=== PATIENT | male | born 1995 | race Caucasian/White ===

== ENCOUNTER 2024-08-05 01:36 | Observation (INO) ==
[2024-08-05 02:16] LABS: Basophils # (auto) 0.03 K/uL (0.00-0.20); Basophils % (auto) 0.8 %; Eosinophils # (auto) 0.04 K/uL (0.00-0.50); Hematocrit (blood only) 45.7 % (42.0-52.0); Immature Granulocytes # (auto) 0.01 K/uL (0.01-0.20); Immature Granulocytes % (auto) 0.3 %; Lymphocytes # (auto) 1.62 K/uL (1.20-3.40); Lymphocytes % (auto) 41.3 %; Mean Corpuscular Hemoglobin 32.3 pg (25.0-34.0); Mean Corpuscular Volume 92.3 fL (80.0-100.0); Mean Platelet Volume 10.5 fL (9.4-12.4); Monocytes # (auto) 0.36 K/uL (0.11-0.59); Monocytes % (auto) 9.2 %; Neutrophils # (auto) 1.86 K/uL (1.40-6.50); Neutrophils % (auto) 47.4 %; Platelet Count 236 K/uL (130-400); RDW Coefficient of Variation 11.9 % (11.5-14.5); RDW Standard Deviation 39.9 fL (36.4-46.3); Red Blood Count 4.95 M/uL (4.70-6.10); White Blood Count 3.92 K/ul (4.8-10.8)
--- NOTE | 2024-08-05 02:27 | Emergency Department Note ---
History of Present Illness General Chief complaint: Detox Request Stated complaint: ALCOHOL DETOX Time Seen by Provider: 08/05/24 01:44 History of Present Illness This 28-year-old male who is an alcoholic presents ER requesting detox. Patient states he been drinking heavily since he was 16 years of age. He does get the shakes from not drinking. No history of seizures. Patient denies chest pain, dyspnea, abdominal pain, vomiting, diarrhea. He last drank at 1900. He drinks 6-8 bottles of malt liquor that is 15% per day per patient and girlfriend. Home Medications Medication Instructions Recorded Confirmed Type escitalopram oxalate 20 mg tablet 20 mg PO DAILY 08/05/24 08/05/24 History hydroxyzine HCl 25 mg tablet 25 - 50 mg PO Q6 PRN Anxiety 08/05/24 08/05/24 History Allergies Allergy/AdvReac Type Severity Reaction Status Date / Time cefazolin AdvReac Intermediate Rash Verified 08/26/12 17:16 Past Med/Surg History Problem List (Updated 08/05/24 @ 03:35 by Helen Bowden DO) Acute alcoholism (Acute) Medical History (Updated 08/05/24 @ 03:35 by Helen Bowden DO) Depression with anxiety Surgical History (Updated 08/05/24 @ 03:35 by Helen Bowden DO) No significant past surgical history Family History (Updated 08/05/24 @ 03:35 by Helen Bowden DO) Other Coronary heart disease Social History (Updated 08/05/24 @ 03:36 by Helen Bowden DO) Smoking Status: Never smoker Tobacco Type: Smokeless Tobacco (Dip or Chew) Hx Alcohol Use: Yes Hx Substance Use: No Preferred Language: Bahraini Feels Safe at Home: Yes Review of Systems A total of 10 systems reviewed and were otherwise negative Physical Exam Vital Signs Vital Signs - 24 hr 08/05/24 01:41 08/05/24 02:07 08/05/24 02:08 Temperature 37 C Temperature Source Temporal Artery Scan Pulse Rate 80 72 Respiratory Rate 17 Blood Pressure 124/91 Blood Pressure Mean 102 Pulse Oximetry 99 99 Oxygen Delivery Method Room Air Room Air Sepsis Recent Fever Within 48 Hours No Sepsis New/Unexplained Change in Mental Status No Sepsis Action Taken by Nursing No Action Required 08/05/24 02:08 Temperature Temperature Source Pulse Rate Respiratory Rate Blood Pressure Blood Pressure Mean Pulse Oximetry 99 Oxygen Delivery Method Room Air Sepsis Recent Fever Within 48 Hours Sepsis New/Unexplained Change in Mental Status Sepsis Action Taken by Nursing VITALS: Vitals are noted on the nurse's note and reviewed by myself. Vital signs stable. GENERAL: Pleasant gentleman with EtOH odor, in no acute distress, nondiaphoretic, well-developed well-nourished. SKIN: The skin was without rashes, erythema, edema, or bruising. There is no tenting of the skin. Capillary reflex less than 2 seconds. HEAD: Normocephalic atraumatic. EARS: External auditory canals clear EYES: Pupils equal round and reactive to light and accommodation. Conjunctivae with mild injection, sclerae without icterus. Extraocular movements intact. NOSE: Patent, no discharge. MOUTH: Mucous membranes moist. Pharynx without erythema or exudate. Uvula midline. Airway patent. Tongue does not deviate. NECK: Supple without nuchal rigidity. No lymphadenopathy. No thyromegaly. Cervical spine is nontender. No JVD. HEART: Regular rate and rhythm LUNGS: Clear to auscultation bilaterally without wheezes, rales or rhonchi. No retractions or accessory muscle use. ABDOMEN: Positive bowel sounds x 4. Normal tympanic percussion. Soft, nontender, without masses or organomegaly. Mckeon sign negative. No guarding or rebound tenderness. No CVA tenderness MUSCULOSKELETAL: No muscle atrophy, erythema, or edema noted. NEURO: Patient was alert and oriented to person place and time. Normal sensation to light and sharp touch. No focal neurological deficits. Course Administered Medications Discontinued Medications Thiamine HCl 500 mg/ Sodium (Chloride) 55 mls @ 210 mls/hr IV NOW ONE Stop: 08/05/24 02:04 Last Infusion: 08/05/24 03:22 Dose: Infused Documented By: Admin: 08/05/24 02:57 Dose: 210 mls/hr Documented By: DARIN Folic Acid 1 mg/ Syringe 10 mls @ 5 mls/min IV NOW STA Stop: 08/05/24 01:50 Last Admin: 08/05/24 02:57 Dose: 5 mls/min Documented By: DARIN Sodium Chloride (Nss) 1,000 mls @ 999 mls/hr IV .Q1H1M ONE Stop: 08/05/24 02:49 Last Admin: 08/05/24 02:58 Dose: 999 mls/hr Documented By: DARIN Lorazepam (Lorazepam 2 Mg/1 Ml Vial) 1 mg IV NOW STA Stop: 08/05/24 02:11 Last Admin: 08/05/24 02:57 Dose: 1 mg Documented By: DARIN Multivitamins (Multivitamin Tab) 1 tab PO NOW STA Stop: 08/05/24 01:50 Last Admin: 08/05/24 02:56 Dose: 1 tab Documented By: DARIN Medical Decision Making Medical Records Attestation: I reviewed the patient's medical records. Home Medications Current Medication List: was personally reviewed by me Laboratory Data Attestation: I reviewed the patient's lab results. 08/05/24 02:04 08/05/24 02:04 Lab Results 08/05/24 Range/Units 02:04 WBC 3.92 L (4.8-10.8) K/ul RBC 4.95 (4.70-6.10) M/uL Hgb 16.0 (14.0-18.0) g/dl Hct 45.7 (42.0-52.0) % MCV 92.3 (80.0-100.0) fL MCH 32.3 (25.0-34.0) pg MCHC 35.0 (32.0-36.0) g/dL RDW Std Deviation 39.9 (36.4-46.3) fL RDW Coeff of Claribel 11.9 (11.5-14.5) % Plt Count 236 (130-400) K/uL MPV 10.5 (9.4-12.4) fL Immature Gran % (Auto) 0.3 % Neut % (Auto) 47.4 % Lymph % (Auto) 41.3 % [place] % (Auto) 9.2 % Eos % (Auto) 1.0 % Baso % (Auto) 0.8 % Neut # (Auto) 1.86 (1.40-6.50) K/uL Lymph # (Auto) 1.62 (1.20-3.40) K/uL [place] # (Auto) 0.36 (0.11-0.59) K/uL Eos # (Auto) 0.04 (0.00-0.50) K/uL Baso # (Auto) 0.03 (0.00-0.20) K/uL Immature Gran # (Auto) 0.01 (0.01-0.20) K/uL Sodium 144 (136-145) mmol/L Potassium 4.0 (3.5-5.1) mmol/L Chloride 106 (98-107) mmol/L Carbon Dioxide 32 (21-32) mmol/L Anion Gap 6 (3-11) BUN 8 (6-23) mg/dl Creatinine 0.82 (0.6-1.4) mg/dl Est Cr Clr Drug Dosing 137.2 ml/min eGFR 121.95 BUN/Creatinine Ratio 9.8 L (10-20) Glucose 103 H (70-99(Fasting)) mg/dl Calcium 8.6 (8.6-10.3) mg/dl Magnesium 2.2 (1.7-2.4) mg/dl Total Bilirubin 0.5 (0.2-1.0) mg/dl AST 32 (13-39) U/L ALT 26 (7-52) U/L Alkaline Phosphatase 90 (34-104) U/L Total Creatine Kinase 156 (30-223) U/L Total Protein 7.8 (6.0-8.3) gm/dl Albumin 4.7 (3.4-5.0) gm/dl Globulin 3.1 (2.5-4.0) gm/dl Albumin/Globulin Ratio 1.5 (0.9-2) Ethyl Alcohol mg/dL 329.1 H (<10.0) mg/dl MDM Narrative Prior records/ancillary studies reviewed. Triage Nursing notes reviewed. Additional history obtained from family. The patient's history was concerning for altered mental status and probable overdose. Differential diagnosis: Etiologies such as toxicologic, infection, hypoglycemia, electrolyte abnormalities, cardiac sources, intracerebral event, neurologic, as well as others were entertained. Physical examination: The patient had BACK: No tenderness, no muscle spasm or CVA tenderness. Sensorium. No trauma noted. ER treatment provided: IV NSS 1 L bolus Multivitamin, thiamine, folate was ordered An order was placed for continuous cardiac monitoring. The monitor shows a rate of 60-100 with a sinus rhythm per my interpretation. Ativan was ordered On reassessment the patient was stable and improving. Diagnostic interpretation by me: ECG: ordered for overdose The electrocardiogram was negative for pathologic change. There was no QRS widening or interval prolongation. EKG: Normal sinus, normal intervals, no acute ST-T wave changes, rate of 68. Impression normal sinus rhythm independently interpreted by myself The labs Independently Interpreted by myself revealed stable H&H Alcohol 329 Consultation: A consultation was placed with the hospitalist. The case was discussed and diagnostics were reviewed. The patient was evaluated in the ER for further treatment. This appears to be consistent with alcoholism requesting detox. Labs were reviewed. Patient was given multivitamins for his alcoholism. He was given a dose of Ativan. He was not tachycardic. Medicine was consulted case discussed. He will be admitted to the medical service. By the evaluation outlined above emergent etiologies such as infection, hypoglycemia, electrolyte abnormalities, cardiac sources, intracerebral event, neurologic,as well as others were deemed relatively unlikely. The pt informed about the findings as listed above. All questions were answered and pleased with the treatment. The chart was completed utilizing [employer] Speech voice recognition software. Grammatical errors, random word insertions, pronoun errors, and incomplete sentences are an occassional consequence of this system due to software limitations, ambient noise, and hardware issues. Any formal questions or concerns about the content, text, or information contained within the body of this dictation should be directly addressed to the physician zoning assistant for clarification. Impression & Plan Acute alcoholism Discharge Plan Visit Data Chief Complaint: Detox Request Stated Complaint: ALCOHOL DETOX ED Provider: Terrence Reyna ED Midlevel Provider: Liz Curry Discharge Problem: Acute alcoholism Patient Disposition: Admitted As Inpatient Condition: Good Forms Stand Alone Forms: My [facility], Suicide Prevention Resources Prescriptions Prescriptions: No Action hydroxyzine HCl 25 mg tablet 25 - 50 mg PO Q6 PRN (Reason: Anxiety) escitalopram oxalate 20 mg tablet 20 mg PO DAILY Referrals Referrals: PCP,NO [Physician] -
[2024-08-05 02:34] LABS: Albumin Globulin Ratio 1.5 (0.9-2); Albumin Level 4.7 gm/dl (3.4-5.0); BUN Creatinine Ratio 9.8 (10-20); Bilirubin,Total 0.5 mg/dl (0.2-1.0); Calcium 8.6 mg/dl (8.6-10.3); Creatinine Clr Calc Pharmacy 137.2 ml/min; Globulin 3.1 gm/dl (2.5-4.0); Magnesium 2.2 mg/dl (1.7-2.4); Total Protein 7.8 gm/dl (6.0-8.3)
[2024-08-05] MEDS: MULTIVITAMIN TAB PO STA (02:56)
[2024-08-05] MEDS: FOLIC ACID 1 MG in SYRINGE 9.8 ML IV STA (02:57)
[2024-08-05] MEDS: LORazepam 2 MG/1 ML VIAL IV STA (02:57)
[2024-08-05] MEDS: THIAMINE HCL 500 MG in SODIUM CHLORIDE 0.9% 50 ML IV ONE (02:57)
[2024-08-05] MEDS: SODIUM CHLORIDE 0.9% 1,000 ML IV ONE (02:58)
--- NOTE | 2024-08-05 03:23 | History & Physical Report ---
Date of Service August 05, 2024 Assessment & Plan (1) Acute alcoholism: (2) Depression with anxiety: Plan 28yo male with history of depression with anxiety, habitual drinking presenting with request for EtOH detox. Patient drinks intermittently. Has been drinking fairly heavily for the last 3- 4 days. Approximately 8 drinks/day. Last drink 08/04/24 at 19:00. No history of complicated withdrawal #Acute alcoholism - EtOH [id number]=370.1 presently. No evidence of withdrawal at present. Patient has been given 1mg IV Ativan int he ER. -Admit to PCU -Librium taper per protocol -IV Ativan per AWSS protocol -Thiamine 100mg po daily, Folic Acid 1mg po daily and MVI daily -Case Management consultation placed - patient expressed desire to go to EtOH rehab after discharge #Depression/Anxiety -Continue Escitalopram 20mg po daily -Hold Hydroxyzine for now History of Present Illness Chief Complaint: Requesting EtOH detox Primary Care Provider: Cedric Stout PA-C Esteban Tijerina is a pleasant 28yo male presenting requesting EtOH detox. Patient with history of anxiety and depression, well managed with Escitalopram and Hydroxyzine. He reports that over the last several years he goes through periods of heavy drinking. He is able to stop drinking for 5-7 days at a time. States that when he starts drinking, however, he is unable to stop. He has been drinking over the last 3-4 days - approximately 8 drinks/day. He drinks [place] from [employer] as well as some hard liquor and beer. Last drink was 08/04/24 at 19:00. When he [place] stopped drinking in the past he has become slightly shaky and sweaty. In the ER patent is afebrile, HD stable ER Course: Thiamine MVI Ativan 1mg IV NSS x 1L Allergies Allergy/AdvReac Type Severity Reaction Status Date / Time cefazolin AdvReac Intermediate Rash Verified 08/26/12 17:16 Home Medications Medication Instructions Recorded Confirmed Type escitalopram oxalate 20 mg tablet 20 mg PO DAILY 08/05/24 08/05/24 History hydroxyzine HCl 25 mg tablet 25 - 50 mg PO Q6 PRN Anxiety 08/05/24 08/05/24 History Past Med/Surg History Problem List (Updated 08/05/24 @ 03:35 by Helen Bowden DO) Acute alcoholism (Acute) Medical History (Updated 08/05/24 @ 03:35 by Helen Bowden DO) Depression with anxiety Surgical History (Updated 08/05/24 @ 03:35 by Helen Bowden DO) No significant past surgical history Family History (Updated 08/05/24 @ 03:35 by Helen Bowden DO) Other Coronary heart disease Social History (Updated 08/05/24 @ 03:36 by Helen Bowden DO) Smoking Status: Never smoker Tobacco Type: Smokeless Tobacco (Dip or Chew) Hx Alcohol Use: Yes Hx Substance Use: No Preferred Language: Tanzanian Feels Safe at Home: Yes Review of Systems Review of Systems: All systems reviewed & are unremarkable except as noted in HPI & below Physical Exam Physical Exam: General: patient resting comfortably, NAD, non-toxic in appearance, AA&O x 4 Skin: warm, dry, intact, no rashes or lesions HEENT: NC/AT, PERRL, EOMI, anicteric sclera, conjunctiva without injection, external ear normal to inspection and nontender, nares patent, moist mucus membranes, dentition intact, no oropharyngeal lesions, neck supple, trachea midline, no LAD, no thyromegaly, no JVD Heart: +S1/S2, regular, no m/r/g Lungs: equal air entry bilaterally, no rales/rhonchi/wheezes Abd: +BS, soft, NT/ND, no masses/organomegaly/ascites Ext: warm, 2+ pulses in UE/LE bilaterally, no clubbing/cyanosis or edema Neuro: nonfocal, patient AA&O x 4, speech intact, no facial droop, moving all extremities on command with equal strength 5/5 Results & Data Results & Data Vital Signs (Past 12 Hours) Vital Signs Temp Pulse Resp BP Pulse Ox O2 Del Method 08/05/24 02:08 99 Room Air 08/05/24 02:08 99 Room Air 08/05/24 02:07 72 08/05/24 01:41 37 C 80 17 124/91 99 Room Air Laboratory Results Laboratory Results WBC 3.92 K/ul (4.8-10.8) L 08/05/24 02:04 RBC 4.95 M/uL (4.70-6.10) 08/05/24 02:04 Hgb 16.0 g/dl (14.0-18.0) 08/05/24 02:04 Hct 45.7 % (42.0-52.0) 08/05/24 02:04 MCV 92.3 fL (80.0-100.0) 08/05/24 02:04 MCH 32.3 pg (25.0-34.0) 08/05/24 02:04 MCHC 35.0 g/dL (32.0-36.0) 08/05/24 02:04 RDW Std Deviation 39.9 fL (36.4-46.3) 08/05/24 02:04 RDW Coeff of Claribel 11.9 % (11.5-14.5) 08/05/24 02:04 Plt Count 236 K/uL (130-400) 08/05/24 02:04 MPV 10.5 fL (9.4-12.4) 08/05/24 02:04 Immature Gran % (Auto) 0.3 % 08/05/24 02:04 Neut % (Auto) 47.4 % 08/05/24 02:04 Lymph % (Auto) 41.3 % 08/05/24 02:04 [place] % (Auto) 9.2 % 08/05/24 02:04 Eos % (Auto) 1.0 % 08/05/24 02:04 Baso % (Auto) 0.8 % 08/05/24 02:04 Neut # (Auto) 1.86 K/uL (1.40-6.50) 08/05/24 02:04 Lymph # (Auto) 1.62 K/uL (1.20-3.40) 08/05/24 02:04 [place] # (Auto) 0.36 K/uL (0.11-0.59) 08/05/24 02:04 Eos # (Auto) 0.04 K/uL (0.00-0.50) 08/05/24 02:04 Baso # (Auto) 0.03 K/uL (0.00-0.20) 08/05/24 02:04 Immature Gran # (Auto) 0.01 K/uL (0.01-0.20) 08/05/24 02:04 Sodium 144 mmol/L (136-145) 08/05/24 02:04 Potassium 4.0 mmol/L (3.5-5.1) 08/05/24 02:04 Chloride 106 mmol/L (98-107) 08/05/24 02:04 Carbon Dioxide 32 mmol/L (21-32) 08/05/24 02:04 Anion Gap 6 (3-11) 08/05/24 02:04 BUN 8 mg/dl (6-23) 08/05/24 02:04 Creatinine 0.82 mg/dl (0.6-1.4) 08/05/24 02:04 Est Cr Clr Drug Dosing 137.2 ml/min 08/05/24 02:04 eGFR 121.95 08/05/24 02:04 BUN/Creatinine Ratio 9.8 (10-20) L 08/05/24 02:04 Glucose 103 mg/dl (70-99(Fasting)) H 08/05/24 02:04 Calcium 8.6 mg/dl (8.6-10.3) 08/05/24 02:04 Magnesium 2.2 mg/dl (1.7-2.4) 08/05/24 02:04 Total Bilirubin 0.5 mg/dl (0.2-1.0) 08/05/24 02:04 AST 32 U/L (13-39) 08/05/24 02:04 ALT 26 U/L (7-52) 08/05/24 02:04 Alkaline Phosphatase 90 U/L (34-104) 08/05/24 02:04 Total Creatine Kinase 156 U/L (30-223) 08/05/24 02:04 Total Protein 7.8 gm/dl (6.0-8.3) 08/05/24 02:04 Albumin 4.7 gm/dl (3.4-5.0) 08/05/24 02:04 Globulin 3.1 gm/dl (2.5-4.0) 08/05/24 02:04 Albumin/Globulin Ratio 1.5 (0.9-2) 08/05/24 02:04 Ethyl Alcohol mg/dL 329.1 mg/dl (<10.0) H 08/05/24 02:04 PG Care Time/CCT Total # of Minutes Spent Total Time Spent with Patient: Total time spent is greater than 50% in coordination of care (as documented) at patient's floor/unit and/or counseling patient: Coding Level of Care Code 54360 INT INP/OBS CARE MIN Diagnoses Acute alcoholism F10.20 Depression with anxiety F41.8
[2024-08-05] MEDS ORDERED: chlordiazePOXIDE ALCOHOL WITHDRAWL 50MG PO STA (05:42)
[2024-08-05] MEDS ORDERED: LORazepam 2 MG/1 ML VIAL IV PRN ×3 (05:42)
[2024-08-05] MEDS ORDERED: Ativan IV Alcohol Withdrawal--Active Protocol IV PRN (05:42)
[2024-08-05] MEDS ORDERED: ONDANSETRON INJ 2 MG/ML 2 ML VIAL IV PRN (05:42)
[2024-08-05] MEDS: chlordiazePOXIDE HCl 25 MG CAP PO SCH (06:52)
--- NOTE | 2024-08-05 08:16 | Hospitalist Progress Note ---
Date of Service August 05, 2024 Assessment & Plan (1) Acute alcoholism: (2) Depression with anxiety: Plan 28yo male with history of depression with anxiety, habitual drinking presenting with request for EtOH detox. Patient drinks intermittently. Has been drinking fairly heavily for the last 3- 4 days. Approximately 8 drinks/day. Last drink 08/04/24 at 19:00. No history of complicated withdrawal #Acute alcoholism - EtOH [id number] presently. No evidence of withdrawal at present. Patient was given 1mg IV Ativan int he ER. -Admitted to PCU -Librium taper per protocol -IV Ativan per AWSS protocol -Thiamine 100mg po daily, Folic Acid 1mg po daily and MVI daily -Case Management consultation placed - patient expressed desire to go to EtOH rehab after discharge #Depression/Anxiety -Continue Escitalopram 20mg po daily -Hold Hydroxyzine for now Admission and Anticipated Discharge Date Admission Date: August 05, 2024 Supervising Physician Co-Signing Physician Notes I personally examined the patient and verified all [place] points of history and exam, discussed case, and agree with decision making with Dr Fields No significant tremulousness sweats or tachycardia. Feeling okay. Discussed self management of behaviors that can trigger drinkingdiscussed exercise and quite meditative measures. Asked him to look through resources to determine what he feels would be his best plan outside the hospital. Vitals noted, in general he is awake and alert pleasant no distress. HEENT normocephalic atraumatic mucous membranes moist. Breathing unlabored no accessory muscle use good effort. Skin without rashes pallor or icterus. No tremulousness, no diaphoresis. Alcohol abuse/risk for withdrawalso far none, although he came in quite intoxicated and certainly withdrawal could still precipitate. Follow at least into tomorrowif he continues to look this good tomorrow, likely will be safe for discharge. At the same time of withdrawal starts to ramp up at all then obviously will need to actively management and follow him longer. Discussed self-management measures, and asked him to look through resources to start to decide what plans would fit best for him. Viktoria Hogan is seen resting comfortably at bedside this morning. Patient feels well this morning and denies excessive sweating, chills/rigors, tremors, and headaches. Patient denies chest pain, palpitations, SOB, abdominal pain, nausea, and vomiting. Patient inquires about his blood alcohol level and is surprised that it is as high as it was and regrets driving to the hospital. Patient interested in acute EtOH rehabilitation but wants to keep his options open and questions his ability to work while admitted in rehab. The dangers of chronic alcohol use and potential associated conditions are discussed with patient and he expressed understanding of these complications. Patient is afebrile and hemodynamically stable. Physical Exam Physical Exam: General: patient resting comfortably, NAD, non-toxic in appearance, answers questions appropriately. Skin: warm, dry, intact HEENT: NC/AT, anicteric sclera, conjunctiva without injection, moist mucus membranes. Heart: +S1/S2, regular, no m/r/g Lungs: equal air entry bilaterally, no rales/rhonchi/wheezes Abd: +BS, soft, NT/ND, uterine fundus firm at umbilicus Ext: warm, no clubbing/cyanosis or edema Neuro: nonfocal, speech intact, no facial droop, moving all extremities. Results & Data Results & Data Vital Signs (Past 12 Hours) Vital Signs Temp Pulse Pulse Resp BP BP Pulse Ox 08/05/24 07:55 73 08/05/24 07:50 36.3 C L 73 18 113/74 97 08/05/24 06:00 36.3 C L 74 18 133/95 98 08/05/24 05:42 36.6 C 74 16 133/95 98 08/05/24 05:08 79 18 113/80 97 08/05/24 03:59 72 18 122/83 98 08/05/24 02:08 99 08/05/24 02:08 99 08/05/24 02:07 72 08/05/24 01:41 37 C 80 17 124/91 99 O2 Del Method 08/05/24 07:55 08/05/24 07:50 Room Air 08/05/24 06:00 Room Air 08/05/24 05:42 Room Air 08/05/24 05:08 Room Air 08/05/24 03:59 Room Air 08/05/24 02:08 Room Air 08/05/24 02:08 Room Air 08/05/24 02:07 08/05/24 01:41 Room Air Resident Activity Tracking Resident Involvement: Resident Care Provided Care Provided: Adult Hospital Medicine
[2024-08-05] MEDS: FOLIC ACID 1 MG TAB PO SCH (08:52)
[2024-08-05] MEDS: MULTIVITAMIN TAB PO SCH (08:52)
[2024-08-05] MEDS: ESCITALOPRAM OXALATE 20 MG TAB PO SCH (08:52)
[2024-08-05] MEDS: THIAMINE HCL 100 MG TAB PO SCH (08:52)
[2024-08-05 12:54] LABS: Amphetamines+Metham, Urine Neg (Neg); Barbiturates, Urine Neg (Neg); Benzodiazepine, Urine Neg (Neg); Cocaine, Urine Neg (Neg); Fentanyl, Urine Neg (Neg); MDMA (Ecstacy), Urine Neg (Neg); Marijuana, Urine Neg (Neg); Methadone, Urine Neg (Neg); Opiate, Urine Neg (Neg); Phencyclidine, Urine Neg (Neg)
--- NOTE | 2024-08-05 13:22 | Electrocardiogram Report ---
Test Reason : Blood Pressure : */* mmHG Vent. Rate : 68 BPM Atrial Rate : 68 BPM P-R Int : 124 ms QRS Dur : 96 ms QT Int : 440 ms P-R-T Axes : -11 35 48 degrees QTcB Int : 467 ms Normal sinus rhythm Normal ECG No previous ECGs available Confirmed by Harman Reeves ([id number]) on 08/05/2024 1:21:39 PM Referred By: REFERRED SELF Confirmed By: Harman Reeves
--- NOTE | 2024-08-05 14:49 | Billing Data ---
Date of Service August 05, 2024 Coding Level of Care Code 32962 SUB INP/OBS CARE
[2024-08-06 07:09] LABS: Hematocrit (blood only) 42.7 % (42.0-52.0); Hemoglobin 15.1 g/dl (14.0-18.0); Mean Corpuscular Hemoglobin 32.8 pg (25.0-34.0); Mean Corpuscular Hgb Conc 35.4 g/dL (32.0-36.0); Mean Corpuscular Volume 92.6 fL (80.0-100.0); Mean Platelet Volume 10.6 fL (9.4-12.4); Platelet Count 188 K/uL (130-400); RDW Coefficient of Variation 11.9 % (11.5-14.5); RDW Standard Deviation 40.6 fL (36.4-46.3); Red Blood Count 4.61 M/uL (4.70-6.10); White Blood Count 3.91 K/ul (4.8-10.8)
[2024-08-06] MEDS: chlordiazePOXIDE HCl 25 MG CAP PO SCH (08:34)
--- NOTE | 2024-08-06 09:02 | Hospitalist Progress Note ---
Date of Service August 06, 2024 Assessment & Plan (1) Acute alcoholism: (2) Depression with anxiety: Plan 28yo male with history of depression with anxiety, habitual drinking presenting with request for EtOH detox. Patient drinks intermittently. Has been drinking fairly heavily for the last 3- 4 days. Approximately 8 drinks/day. Last drink 08/04/24 at 19:00. No history of complicated withdrawal #Acute alcoholism - EtOH [id number] presently. No evidence of withdrawal at present. Patient was given 1mg IV Ativan int he ER. add one dose gabapentin tonight, bid starts 08/08/24 -Librium taper per protocol -IV Ativan per AWSS protocol -Thiamine 100mg po daily, Folic Acid 1mg po daily and MVI daily -Case Management consultation placed - patient expressed desire to go to EtOH rehab after discharge #Depression/Anxiety -Continue Escitalopram 20mg po daily -Hold Hydroxyzine for now Admission and Anticipated Discharge Date Admission Date: August 05, 2024 Subjective pt remains mildly tremulous, decision regarding inpt or outpt rehab mild anxiety Physical Exam Physical Exam: mild tremor awake and alert Results & Data Results & Data Vital Signs (Past 12 Hours) Vital Signs Temp Pulse Pulse Resp BP Pulse Ox O2 Del Method 08/06/24 08:00 98.2 F 79 18 148/81 H 95 Room Air 08/06/24 07:11 Room Air 08/06/24 02:59 98.1 F 74 16 167/90 H 97 Room Air 08/05/24 23:05 98.2 F 95 H 16 144/96 H 96 Room Air 08/05/24 22:02 79 PG Care Time/CCT Total # of Minutes Spent Total Time Spent with Patient: Total time spent is greater than 50% in coordination of care (as documented) at patient's floor/unit and/or counseling patient: Coding Level of Care Code 21788 SUB INP/OBS CARE 2/35MIN Diagnoses Acute alcoholism F10.20 Depression with anxiety F41.8
[2024-08-06] MEDS: GABAPENTIN 600 MG TAB PO STA (17:22)
[2024-08-07] MEDS: chlordiazePOXIDE HCl 25 MG CAP PO SCH (07:48)
[2024-08-07] MEDS: GABAPENTIN 300 MG CAP PO SCH (07:50)
[2024-08-07 11:10] VITALS: BP 128/68; RESP 20; TEMP 97.9; O2SAT 99
[2024-08-07 11:29] VITALS: PULSE 88
--- NOTE | 2024-08-07 16:23 | Discharge Summary ---
Discharge Summary Date of Service August 07, 2024 Principal Dx & Hospital Course #1 = Principal Diagnosis (1) Acute alcoholism: (2) Depression with anxiety: Plan 28yo male with history of depression with anxiety, habitual drinking presenting with request for EtOH detox. Patient drinks intermittently. Has been drinking fairly heavily for the last 3- 4 days. Approximately 8 drinks/day. Last drink 08/04/24 at 19:00. No history of complicated withdrawal #Acute alcoholism - EtOH uofbc=321.1 presently. No evidence of withdrawal at present. Patient was given 1mg IV Ativan int he ER. add one dose gabapentin 600mg , bid starts 08/07/24 will stop after 3 days after dc -Librium taper as an outpt 5 days after discharge - patient expressed desire to do outpt rehab after discharge, cm had given information #Depression/Anxiety -Continue Escitalopram 20mg po daily -Hydroxyzine Notes For Next Care Provider may consider naltrexone. may consider supportive behavioral health follow Admission HPI Per Admitting Provider Esteban Tijerina is a pleasant 28yo male presenting requesting EtOH detox. Patient with history of anxiety and depression, well managed with Escitalopram and Hydroxyzine. He reports that over the last several years he goes through p eriods of heavy drinking. He is able to stop drinking for 5-7 days at a time. States that when he starts drinking, however, he is unable to stop. He has been drinking over the last 3-4 days [employer]- approximately 8 drinks/day. He drinks Buzzballs from [employer] as well as some hard liquor and beer. Last drink was 08/04/24 at 19:00. When he had stopped drinking in the past he has become slightly shaky and sweaty. In the ER patent is afebrile, HD stable ER Course: Thiamine MVI Ativan 1mg IV NSS x 1L Discharge Exam awake and alert, less tremor cardiac is regular Discharge Plan Discharge Items Patient Disposition: Home - Self-Care Reason For Visit: ETOH WITHDRAWAL Discharge Diagnosis: Alcohol withdrawal Condition on Discharge: Good Activity: Resume your previous activity Non-emergency contact: Primary Care Provider Call non-emergency contact if: your symptoms worsen Follow-up/Referrals: Cedric Stout PA-C [Primary Care Provider] - Diet: Regular Addtl Attending Provider Instructions: please take tapering doses of your medications please consider complete abstinence from alcohol for an extended period of time so that you can work on the psychological part of addiction while you avoid the physical part by not drinking alcohol. consider active planning on what you can do, as a substitute, for the activities that you currently do which involve alcohol Pending Studies at Discharge: No Stand-Alone Forms: My [facility], Smoking Cessation Medications and DC Order Prescriptions: New chlordiazepoxide HCl 10 mg Capsule 10 mg PO UD Qty: 16 0RF Rx Instructions: take 2 on night of discharge then 2 pills twice a day for 2 days then 1 twice a day for 2 days then one at night x 2 days gabapentin 300 mg capsule 300 mg PO BID Qty: 5 0RF Rx Instructions: take one in pm 08/07 then twice a day 08/08 and 08/09 chlordiazepoxide HCl 10 mg capsule 10 mg PO BID Qty: 16 0RF Rx Instructions: take 2 on night of discharge then 2 pills twice a day for 2 days then 1 twice a day for 2 days then one at night x 2 days Continued hydroxyzine HCl 25 mg tablet 25 - 50 mg PO Q6 PRN (Reason: Anxiety) escitalopram oxalate 20 mg tablet 20 mg PO DAILY Discharge Orders: Discharge Order (Routine); Ordered 08/07/24 Ordered By: El Adler Admission Data Admit Date/Time: 08/05/24 03:23 Attending Provider: El Adler Admit Provider: Helen Bowden Primary Care Provider: Cedric Stout. Other Providers: Helen Bowden Other Interventions: Discharge Summary Assessment (RN) Last Done: 08/07/24 11:24 Hospital Stay Data Consultations 08/05/24 02:58 ED Decision to Admit Stat Pending Results Patient Have Any Pending Studies at Discharge: No Discharge Instructions Given to Patient (Per Discharging Provider) please take tapering doses of your medications please consider complete abstinence from alcohol for an extended period of time so that you can work on the psychological part of addiction while you avoid the physical part by not drinking alcohol. consider active planning on what you can do, as a substitute, for the activities that you currently do which involve alcohol Total Time Total Time Spent Total Time Spent (In Minutes): greater than 30 minutes were required to discharge Coding Level of Care Code 09652 INP/OBS DISCH >30 MIN Diagnoses Acute alcoholism F10.20 Depression with anxiety F41.8
== END 2024-08-07 13:18 | disposition home or self-care (01) | DRG 897 ==
LOC: ED 01:36 → INTOOBSV 03:23 → 2S 03:23 → SUATTDRO 03:23 → 2S 05:08

== ENCOUNTER 2024-09-18 21:36 | Observation (INO) ==
[2024-09-18 22:17] LABS: iSTAT Creatinine 1.4 mg/dl (0.6-1.3); iSTAT Hemoglobin 15.3 g/dl (14.0-18.0); iSTAT Ionized Calcium 1.07 mmol/l (1.12-1.32); iSTAT Potassium 3.9 mmol/L (3.3-5.0)
--- NOTE | 2024-09-18 23:56 | Emergency Department Note ---
History of Present Illness General Chief complaint: Alcohol Intoxication Stated complaint: UNRESPONSIVE, ALCOHOL OVERDOSE Time Seen by Provider: 09/18/24 21:44 Source: EMS History of Present Illness Provider complaint: Alcohol intoxication 28-year-old male was brought in by EMS for alcohol intoxication. Reportedly the patient's family members called him after finding him lying in his bed with an empty bottle of moonshine and being unresponsive. No reported trauma per EMS. Home Medications Medication Instructions Recorded Confirmed Type escitalopram oxalate 20 mg tablet 20 mg PO DAILY 08/05/24 08/05/24 History hydroxyzine HCl 25 mg tablet 25 - 50 mg PO Q6 PRN Anxiety 08/05/24 08/05/24 History chlordiazepoxide HCl 10 mg capsule 10 mg PO BID #16 caps 08/07/24 Rx chlordiazepoxide HCl 10 mg capsule 10 mg PO UD #16 caps 08/07/24 Rx gabapentin 300 mg capsule 300 mg PO BID #5 caps 08/07/24 Rx Allergies Allergy/AdvReac Type Severity Reaction Status Date / Time cefazolin AdvReac Intermediate Rash Verified 08/26/12 17:16 Past Med/Surg History Problem List (Updated 09/19/24 @ 00:44 by Andrea Camacho MD) Alcoholic intoxication (Acute) Acute alcoholism (Acute) Medical History Depression with anxiety Surgical History No significant past surgical history Family History Other Coronary heart disease Social History Smoking Status: Current every day smoker Tobacco Type: Smokeless Tobacco (Dip or Chew) Do You Dip or Chew Tobacco: No (pt uses Zyn nicotine pouches, 4 9mg pouches a day); Hx Alcohol Use: Yes Alcohol type: beer, hard liquor and other Hx Substance Use: No Preferred Language: Mongolian Communication Ability: Effective Colorist Dyer Required: No Beliefs That Will Affect Care: None Current Living Situation: Parent Feels Safe at Home: Yes Assistive Devices: None Physical Exam Vital Signs Vital Signs - 24 hr 09/18/24 21:38 09/18/24 21:41 09/18/24 21:42 Pulse Rate 98 H 80 94 H Respiratory Rate 18 Respiratory Effort / Characteristics Non-Labored Spontaneous Respiratory Depth Normal Blood Pressure 124/88 124/88 Blood Pressure Mean 100 110 Pulse Oximetry 96 Oxygen Delivery Method Room Air Sepsis Recent Fever Within 48 Hours No Sepsis New/Unexplained Change in Mental Status No Sepsis Action Taken by Nursing No Action Required 09/18/24 22:24 09/18/24 22:30 09/19/24 00:00 Pulse Rate 96 H 88 85 Respiratory Rate 19 18 17 Respiratory Effort / Characteristics Respiratory Depth Blood Pressure 122/80 127/80 113/55 L Blood Pressure Mean 102 95 70 Pulse Oximetry 94 94 93 Oxygen Delivery Method Sepsis Recent Fever Within 48 Hours Sepsis New/Unexplained Change in Mental Status Sepsis Action Taken by Nursing Physical Exam GENERAL: Patient smells of alcohol HENT: Exam performed. - Head: Normocephalic and atraumatic. EYES: Conjunctivae and EOM are normal. Pupils are equal, round, and reactive to light. CV: Normal rate, regular rhythm, normal heart sounds and intact distal pulses. There is no peripheral edema. Palpable radial pulses bue. PULM/CHEST: Effort normal and breath sounds normal. Course Course 2143: The patient was evaluated in room A1. A complete history and physical exam was performed 0027: Vital signs stable. Patient's alcohol 486. Pending sobriety. Case signed out to Dr. Woodall. Medical Decision Making Laboratory Data Attestation: I reviewed the patient's lab results. Lab Results 09/18/24 09/18/24 Range/Units 21:30 22:05 POC Hgb 15.3 (14.0-18.0) g/dl POC Hct 45 (42-52) % POC Sodium 146 H (135-144) mmol/L POC Potassium 3.9 (3.3-5.0) mmol/L POC Chloride 108 (101-112) mmol/L POC Total CO2 25 (24-31) mmol/L POC Anion Gap 19.0 (16-25) mmol/L POC BUN 10 (7-18) mg/dl POC Creatinine 1.4 H (0.6-1.3) mg/dl POC Glucose (other) 109 H (70-99) mg/dl POC Ioniz Calcium Nancie 1.07 L (1.12-1.32) mmol/l Ethyl Alcohol mg/dL 486.6 H (<10.0) mg/dl [facility] Narrative 2144: The patient was evaluated in room A1. A complete history and physical exam was performed 0027: Vital signs stable. Patient's alcohol 486. Pending sobriety. Case signed out to Dr. Woodall. Impression & Plan Alcoholic intoxication Discharge Plan Visit Data Chief Complaint: Alcohol Intoxication Stated Complaint: UNRESPONSIVE, ALCOHOL OVERDOSE ED Provider: Nidia Woodall Discharge Problem: Alcoholic intoxication Patient Disposition: Still a Patient Condition: Fair Forms Stand Alone Forms: [facility] Prescriptions Prescriptions: No Action hydroxyzine HCl 25 mg tablet 25 - 50 mg PO Q6 PRN (Reason: Anxiety) escitalopram oxalate 20 mg tablet 20 mg PO DAILY chlordiazepoxide HCl 10 mg Capsule 10 mg PO UD Qty: 16 0RF Rx Instructions: take 2 on night of discharge then 2 pills twice a day for 2 days then 1 twice a day for 2 days then one at night x 2 days gabapentin 300 mg capsule 300 mg PO BID Qty: 5 0RF Rx Instructions: take one in pm 08/07 then twice a day 08/08 and 08/09 chlordiazepoxide HCl 10 mg capsule 10 mg PO BID Qty: 16 0RF Rx Instructions: take 2 on night of discharge then 2 pills twice a day for 2 days then 1 twice a day for 2 days then one at night x 2 days Referrals Referrals: Cedric Stout PA-C [Primary Care Provider] -
--- NOTE | 2024-09-19 00:16 | Emergency Department Note ---
ED Visit Note Patient signed out to me by Dr. Camacho at 00:15. Patient found in his bed drunk off moonshine. Pending clinical sobriety. On reassessment at 03:00, patient is still clinically intoxicated. Difficult to rouse from sleep. As such, patient will not be clinically sober for at least over 12 hours. He will be admitted to hospital service for further evaluation and management until he can be further clinically evaluated for sobriety and potential rehab placement. Discussed case with inpatient hospitalist, Dr. Lee, for admission. Patient be admitted to inpatient [facility] hospitalist service for further evaluation management. Diagnosis: alcohol intoxication Plan: admit .
--- NOTE | 2024-09-19 03:46 | History & Physical Report ---
Date of Service September 19, 2024 Assessment & Plan (1) Alcoholic intoxication: Plan: Alcohol intoxication Alcohol level 486.6. Unclear history of last drink. Repeat of alcohol level is now downtrending, 373.8. Admitted to M/T Initially lethargic, remains somnolent but on reassessment does follow some commands and answer questions before falling back asleep. No hypoxia. VBG with mild respiratory acidosis. VBG trended Guarding airway at bedside assessment Aspiration precautions AWSS. Once no longer acutely intoxicated and mentation improves reassess for outpatient Librium taper versus inpatient management of withdrawal/phenobarbital. - +Thiamine Depression/anxiety Continue Lexapro still taking this. Unable to assess medications due to mental status on admission DVT prophylaxis: SCDs Disposition: M/T CODE STATUS: Full code Diet: N.p.o. (2) Acute alcoholism: History of Present Illness Primary Care Provider: Cedric Stout PA-C Esteban is a 28-year-old male with a past medical history of alcohol abuse who presented to the ER intoxicated with an alcohol level of 486.6. Initially with the ER provider history of was limited by unresponsiveness from intoxication. Patient was brought in by family members who found him laying in his bed with an empty bottle of moonshine brand liquor (not illicit moonshine). At time of hospitalist consultation patient is still sedated and a limited historian however does awaken to loud voice and tactile stimuli. Follows one- step commands before falling back asleep. Does awaken transiently however gives limited history, denies any drug use/illicit drug use/opiate use. Denies pain. Does not give a accurate history of how much alcohol he had been drinking the evening prior. Medical History: Reviewed in EMR Medications: Reviewed in EMR Surgical History: Reviewed in EMR Family history: Reviewed in EMR Allergies: Reviewed in EMR Social History: ETOH abuse. Code Status:Full Allergies Allergy/AdvReac Type Severity Reaction Status Date / Time cefazolin AdvReac Intermediate Rash Verified 08/26/12 17:16 Home Medications Medication Instructions Recorded Confirmed Type escitalopram oxalate 20 mg tablet 20 mg PO DAILY 08/05/24 08/05/24 History hydroxyzine HCl 25 mg tablet 25 - 50 mg PO Q6 PRN Anxiety 08/05/24 08/05/24 History chlordiazepoxide HCl 10 mg capsule 10 mg PO BID #16 caps 08/07/24 Rx chlordiazepoxide HCl 10 mg capsule 10 mg PO UD #16 caps 08/07/24 Rx gabapentin 300 mg capsule 300 mg PO BID #5 caps 08/07/24 Rx Past Med/Surg History Problem List (Updated 09/19/24 @ 00:44 by Andrea Camacho MD) Alcoholic intoxication (Acute) Acute alcoholism (Acute) Medical History Depression with anxiety Surgical History No significant past surgical history Family History Other Coronary heart disease Social History Smoking Status: Current every day smoker Tobacco Type: Smokeless Tobacco (Dip or Chew) Do You Dip or Chew Tobacco: No (pt uses Zyn nicotine pouches, 4 9mg pouches a day); Hx Alcohol Use: Yes Alcohol type: beer, hard liquor and other Hx Substance Use: No Preferred Language: Arabic Communication Ability: Effective Machine Woodworking Sander Required: No Beliefs That Will Affect Care: None Current Living Situation: Parent Feels Safe at Home: Yes Assistive Devices: None Physical Exam Physical Exam: General: Lethargic. Awakens to sternal rub, loud vocal stimuli initially. On reassessment does awaken to tactile shoulder stimulation and does not require sternal rub. On reassessment does track with his eyes and follow one-step commands before falling back asleep. HEENT: Atraumatic, normocephalic. Pupils equal and responsive to light. Pulm: Slightly diminished, CTAB A&P. -wheezes, -rales, -rhonchi. Symmetrical chest rise. No increased work of breathing. No respiratory distress. Cardiac: RRR, -mrg. Radial pulses intact and symmetrical. Abdominal: Nontender, nondistended, soft. BS present. Extremities: Warm and dry Results & Data Results & Data Vital Signs (Past 12 Hours) Vital Signs Pulse Pulse Resp BP BP Pulse Ox O2 Del Method 09/19/24 03:00 81 17 132/71 98 Room Air 09/19/24 01:30 85 09/19/24 01:00 76 16 155/84 H 100 Room Air 09/19/24 00:00 85 17 113/55 L 93 09/18/24 22:30 88 18 127/80 94 09/18/24 22:24 96 H 19 122/80 94 09/18/24 21:42 94 H 09/18/24 21:41 80 124/88 09/18/24 21:38 98 H 18 124/88 96 Room Air PG Care Time/CCT Total # of Minutes Spent Total Time Spent with Patient: Total time spent is greater than 50% in coordination of care (as documented) at patient's floor/unit and/or counseling patient: Coding Level of Care Code 29016 INT INP/OBS CARE 3/75MIN Diagnoses Alcoholic intoxication F10.929 Acute alcoholism F10.20
[2024-09-19 03:52] LABS: Base Excess VBG 1.5 mEq/L; HCO3 VBG 29 mmol/L; Oxygen Saturation VBG 81.4 %; PCO2 VBG 54 mmHg (38-50); PO2 VBG 51 mmHg; pH VBG 7.33 (7.36-7.41)
[2024-09-19] MEDS ORDERED: LORazepam 2 MG/1 ML VIAL IV PRN ×3 (05:49→06:00)
[2024-09-19] MEDS ORDERED: Ativan IV Alcohol Withdrawal--Active Protocol IV PRN (06:00)
[2024-09-19] MEDS: ONDANSETRON INJ 2 MG/ML 2 ML VIAL IV PRN (06:36)
--- NOTE | 2024-09-19 07:32 | Hospitalist Progress Note ---
Date of Service September 19, 2024 Assessment & Plan (1) Alcoholic intoxication: Plan: # Alcohol intoxication not in acute withdrawal at this time Alcohol level 486.6. Unclear history of last drink. Repeat of alcohol level is now downtrending, 373.8. AWSS. Patient only on gabapentin and lorazepam as needed thiamine is replete #Nausea mild upset stomach. Patient says having melena. Instituting Carafate for immediate relief and Pepcid twice daily. Hemoglobin was not checked on admission this will be added for the morning of 612 # Depression/anxiety Continue Lexapro still taking this. Unable to assess medications due to mental status on admission DVT prophylaxis: SCDs (2) Acute alcoholism: Admission and Anticipated Discharge Date Admission Date: September 19, 2024 Subjective Patient returns after previously admitted for alcohol withdrawal, states he was dry for 4 weeks start drinking a does not incite any particular event or stressful issue that occurred. During his last admission he was proved with gabapentin and Librium. He is on the COURTNEY scale for lorazepam will he also use a tapering dose of gabapentin starting with 800 mg. He notes abdominal discomfort and nausea states he is having black bowel movements lately Physical Exam Physical Exam: Awake pressured speech no tremor no asterixis Abdomen without focal epigastric distress NABS soft Results & Data Results & Data Vital Signs (Past 12 Hours) Vital Signs Temp Pulse Pulse Resp BP BP Pulse Ox 09/19/24 06:11 98.4 F 84 18 122/83 95 09/19/24 05:08 98.1 F 84 17 111/69 96 09/19/24 04:00 98.1 F 83 16 109/76 98 09/19/24 03:00 81 17 132/71 98 09/19/24 01:30 85 09/19/24 01:00 76 16 155/84 H 100 09/19/24 00:00 85 17 113/55 L 93 09/18/24 22:30 88 18 127/80 94 09/18/24 22:24 96 H 19 122/80 94 09/18/24 21:42 94 H 09/18/24 21:41 80 124/88 09/18/24 21:38 98 H 18 124/88 96 O2 Del Method 09/19/24 06:11 Room Air 09/19/24 05:08 Room Air 09/19/24 04:00 Room Air 09/19/24 03:00 Room Air 09/19/24 01:30 09/19/24 01:00 Room Air 09/19/24 00:00 09/18/24 22:30 09/18/24 22:24 09/18/24 21:42 09/18/24 21:41 09/18/24 21:38 Room Air Laboratory Results Chemistry reviewed PG Care Time/CCT Total # of Minutes Spent Total Time Spent with Patient: Total time spent is greater than 50% in coordination of care (as documented) at patient's floor/unit and/or counseling patient: Coding Level of Care Code 04856 SUB INP/OBS CARE 2/35MIN Diagnoses Alcoholic intoxication F10.929 Acute alcoholism F10.20
[2024-09-19] MEDS: THIAMINE HCL 500 MG in SODIUM CHLORIDE 0.9% 50 ML IV ONE (08:39)
[2024-09-19] MEDS: NICOTINE 21 MG/24 HR TDSY TD SCH (08:40)
[2024-09-19] MEDS: FOLIC ACID 1 MG TAB PO SCH (10:09)
[2024-09-19] MEDS ORDERED: GABAPENTIN 800MG ALCOHOL WITHDRAWAL LOAD PO STA (18:31)
[2024-09-19] MEDS: FAMOTIDINE 20 MG TAB PO SCH (20:11)
[2024-09-19] MEDS: ACETAMINOPHEN 325 MG TAB PO PRN (20:11)
[2024-09-19] MEDS: SUCRALFATE 1 GM TAB PO SCH (20:12)
[2024-09-19] MEDS: GABAPENTIN 400 MG CAP PO ONE (20:12)
[2024-09-19] MEDS: LORazepam 2 MG/1 ML VIAL IV PRN (23:29)
[2024-09-19] MEDS: GABAPENTIN 400 MG CAP PO SCH (23:31)
[2024-09-20 06:21] LABS: Hematocrit (blood only) 40.7 % (42.0-52.0); Mean Corpuscular Hemoglobin 31.7 pg (25.0-34.0); Mean Corpuscular Hgb Conc 34.4 g/dL (32.0-36.0); Mean Corpuscular Volume 92.3 fL (80.0-100.0); Mean Platelet Volume 10.4 fL (9.4-12.4); Platelet Count 208 K/uL (130-400); RDW Coefficient of Variation 12.1 % (11.5-14.5); RDW Standard Deviation 41.1 fL (36.4-46.3); Red Blood Count 4.41 M/uL (4.70-6.10); White Blood Count 3.96 K/ul (4.8-10.8)
[2024-09-20] MEDS ORDERED: CALCIUM CARBONATE 500 MG CHEWABLE TAB PO PRN (06:28)
[2024-09-20] MEDS: ALUMINUM/MAGNESIUM SUSP 30 ML UDC PO PRN (06:50)
[2024-09-20 06:54] LABS: Albumin Globulin Ratio 1.7 (0.9-2); Bilirubin,Total 0.6 mg/dl (0.2-1.0); Calcium 8.6 mg/dl (8.6-10.3); Creatinine Clr Calc Pharmacy 152.8 ml/min; Globulin 2.2 gm/dl (2.5-4.0); Potassium 3.8 mmol/L (3.5-5.1)
[2024-09-20 08:46] LABS: Magnesium 1.6 mg/dl (1.7-2.4)
[2024-09-20] MEDS: THIAMINE HCL 500 MG in SODIUM CHLORIDE 0.9% 50 ML IV SCH (09:38)
[2024-09-20] MEDS: MAGNESIUM SULFATE / D5W 1 GM/100 ML BAG IV SCH (11:24)
--- NOTE | 2024-09-20 13:22 | Electrocardiogram Report ---
Test Reason : Blood Pressure : */* mmHG Vent. Rate : 65 BPM Atrial Rate : 65 BPM P-R Int : 122 ms QRS Dur : 96 ms QT Int : 410 ms P-R-T Axes : 69 37 27 degrees QTcB Int : 426 ms Normal sinus rhythm Possible Left atrial enlargement Borderline ECG When compared with ECG of 05-Aug-2024 01:59, No significant change was found Confirmed by Charly Montanez ([id number]) on 09/20/2024 1:22:12 PM Referred By: REFERRED SELF Confirmed By: Charly Montanez
--- NOTE | 2024-09-20 13:51 | Hospitalist Progress Note ---
Date of Service September 20, 2024 Assessment & Plan (1) Alcohol withdrawal: Plan: -mild -only requiring low-dose ativan at this point, and on exam today few features of withdrawal -cont gabapentin taper -thiamine/folic acid supplementation (2) Alcoholic intoxication: Plan: -Alcohol level 486 at admission (3) Alcohol dependence: Plan: -patient with off/on heavy alcohol use for several years -we discussed treatment options today -he has contemplated a 30-day rehab program but he is not quite ready to attend one -he is willing to try AA again -willing to go to intensive outpatient counseling -interested in use of naltrexone -gave him handout on such -told him best time to initiate it is during a time of sobriety -he will think about this and let us know (4) GERD (gastroesophageal reflux disease): Plan: -takes a PPI at home -add protonix daily -can cont carafate -cont tums prn -can stop pepcid (5) Depression with anxiety: Plan: -resume lexapro 20mg daily (6) Tobacco use: Plan: -nicoderm patch daily (7) Hypomagnesemia: Plan: -replace with IV mag sulfate x 2 grams Plan if ativan use is minimal and patient has few symptoms/signs of withdrawal could consider d/c home tomorrow on 09/21 with a few more days of gabapentin taper he will let us know about the naltrexone, if interested Admission and Anticipated Discharge Date Admission Date: September 19, 2024 Subjective patient reports some mild sweats at times, mild anxiety, minimal tremor has needed low-dose ativan IV just a few times the last 24 hours eating without difficult recounts how he began drinking heavily in the early he mentions that he tries to limit the amount of etoh consumption but the volumes simply escalate over time he is motivated to quit/abstain has been thinking about options attended AA - didn't like the particular meeting he went to, but willing to try AA again he is interested in outpatient counseling we discussed naltrexone, dosing, etc. he is interested in this tele overnight wnl Review of Systems Review of Systems: gen - no fevers cv - no chest pain pulm - no dyspnea GI - some heartburn issues, but no pain or vomiting Physical Exam Physical Exam: gen - WD, WN, NAD, awake/alert mouth - MMM heart - RRR, s1 s2, no murmur lungs - CTA b/l abd - soft NT ND BS+; no HSM ext - no edema, pulses 2+ b/l neuro - no tremors psych - no severe anxiety, no irritability Results & Data Results & Data Vital Signs (Past 12 Hours) Vital Signs Temp Pulse Pulse Resp BP Pulse Ox O2 Del Method 09/20/24 11:33 37.2 C 91 H 18 159/112 H 98 Room Air 09/20/24 07:55 36.8 C 79 19 147/96 H 99 Room Air 09/20/24 07:14 66 09/20/24 06:00 36.8 C 72 20 135/97 97 Room Air Laboratory Results Laboratory Results - last 24 hr 09/20/24 05:34 WBC 3.96 L RBC 4.41 L Hgb 14.0 Hct 40.7 L MCV 92.3 MCH 31.7 MCHC 34.4 RDW Std Deviation 41.1 RDW Coeff of Claribel 12.1 Plt Count 208 MPV 10.4 Sodium 142 Potassium 3.8 Chloride 106 Carbon Dioxide 30 Anion Gap 6 BUN 13 Creatinine 0.81 Est Cr Clr Drug Dosing 152.8 eGFR 122.40 BUN/Creatinine Ratio 16.0 Glucose 88 Calcium 8.6 Magnesium 1.6 L Total Bilirubin 0.6 AST 19 ALT 15 Alkaline Phosphatase 58 Total Protein 6.0 Albumin 3.8 Globulin 2.2 L Albumin/Globulin Ratio 1.7 PG Care Time/CCT Total # of Minutes Spent Total Time Spent with Patient: Total time spent is greater than 50% in coordination of care (as documented) at patient's floor/unit and/or counseling patient: Coding Level of Care Code 46536 SUB INP/OBS CARE 2/35MIN Diagnoses Alcohol withdrawal F10.939 Alcoholic intoxication F10.929 Alcohol dependence F10.20 GERD (gastroesophageal reflux disease) K21.9 Depression with anxiety F41.8 Tobacco use Z72.0 Hypomagnesemia E83.42
[2024-09-20] MEDS: PANTOprazole 40 MG TAB PO STA (14:46)
[2024-09-20] MEDS: GABAPENTIN 400 MG CAP PO SCH (14:50)
[2024-09-21 06:53] LABS: Albumin Globulin Ratio 1.7 (0.9-2); BUN Creatinine Ratio 9.9 (10-20); Bilirubin,Total 0.7 mg/dl (0.2-1.0); Creatinine Clr Calc Pharmacy 152.4 ml/min; Globulin 2.3 gm/dl (2.5-4.0); Potassium 4.1 mmol/L (3.5-5.1); Total Protein 6.3 gm/dl (6.0-8.3)
[2024-09-21 07:36] VITALS: RESP 16; O2SAT 99
[2024-09-21] MEDS: ESCITALOPRAM OXALATE 20 MG TAB PO SCH (08:05)
[2024-09-21] MEDS: PANTOprazole 40 MG TAB PO SCH (08:06)
[2024-09-21 10:27] VITALS: BP 128/87; PULSE 81; TEMP 98.1
--- NOTE | 2024-09-21 11:40 | Discharge Summary ---
Discharge Summary Date of Service September 21, 2024 Principal Dx & Hospital Course #1 = Principal Diagnosis (1) Alcohol withdrawal: Continue AW SAS protocol. Discharge on Librium tapering dose. Alcohol intake cessation has been highly recommended (2) Alcoholic intoxication: Alcohol level 486 at admission (3) Alcohol dependence: He is considering outpatient alcohol rehab program (4) GERD (gastroesophageal reflux disease): He will continue with Protonix therapy at home. Pepcid has been discontinued. He was also treated with Carafate while hospitalized (5) Depression with anxiety: Stable. Continue Lexapro (6) Tobacco use: nicoderm patch daily while hospitalized (7) Hypomagnesemia: Corrected with parenteral magnesium replacement therapy. Plan Home today, September 21, on Librium tapering dose. He was instructed to pursue outpatient alcohol rehabilitation program. Admission HPI Per Admitting Provider Esteban is a 28-year-old male with a past medical history of alcohol abuse who presented to the ER intoxicated with an alcohol level of 486.6. Initially with the ER provider history of was limited by unresponsiveness from intoxication. Patient was brought in by family members who found him laying in his bed with an empty bottle of moonshine brand liquor (not illicit moonshine). At time of hospitalist consultation patient is still sedated and a limited histo juliana however does awaken to loud voice and tactile stimuli. Follows one-step commands before falling back asleep. Does awaken transiently however gives limited history, denies any drug use/illicit drug use/opiate use. Denies pain. Does not give a accurate history of how much alcohol he had been drinking the evening prior. Medical History: Reviewed in EMR Medications: Reviewed in EMR Surgical History: Reviewed in EMR Family history: Reviewed in EMR Allergies: Reviewed in EMR Social History: ETOH abuse. Code Status:Full Discharge Exam General-alert and oriented x3, no fever, no chills HEENT-head atraumatic and normocephalic, pupils equal and reactive to light, extraocular muscles intact Neck-no lymphadenopathy or thyromegaly, trachea midline Chest-clear to auscultation. No rales, wheezing or rhonchi Cardiac-regular rate and rhythm, normal S1 and S2 Abdomen-normal bowel sounds, no hepatosplenomegaly Extremities-no cyanosis, clubbing, or edema Neuro-cranial nerves II through XII intact, motor and sensory function within normal limits, strength symmetrical, no focal deficits Psych-normal affect, normal mood Discharge Plan Discharge Items Patient Disposition: Home - Self-Care Reason For Visit: ETOH WITHDRAWAL Discharge Diagnosis: Alcohol intoxication, alcohol withdrawal, hypomagnesemia Condition on Discharge: Good Activity: Resume your previous activity Non-emergency contact: Primary Care Provider Call non-emergency contact if: your symptoms worsen Follow-up/Referrals: Cedric Stout PA-C [Primary Care Provider] - Diet: Regular Addtl Attending Provider Instructions: Cessation of alcohol intake is highly recommended. Take chlordiazepoxide (Librium) in a tapering dose fashion as directed. A prescription has been sent to your [facility] pharmacy. Continue Protonix for stomach acid. Pepcid has been discontinued. Pending Studies at Discharge: No Stand-Alone Forms: My [facility] [place], Smoking Cessation Medications and DC Order Prescriptions: New pantoprazole 40 mg Tablet,Delayed Release (Dr/Ec) 40 mg PO QAM Qty: 30 0RF chlordiazepoxide HCl 10 mg capsule See Rx Instructions .ROUTE .COMPLEX Qty: 12 0RF Rx Instructions: 10 mg orally 3 times a day for 2 days, then 10 mg twice a day for 2 days, then 10 mg once a day for 2 days, then stop Continued escitalopram oxalate 20 mg tablet 20 mg PO DAILY Discontinued hydroxyzine HCl 25 mg tablet 25 - 50 mg PO Q6 PRN (Reason: Anxiety) chlordiazepoxide HCl 10 mg Capsule 10 mg PO UD Qty: 16 0RF Rx Instructions: take 2 on night of discharge then 2 pills twice a day for 2 days then 1 twice a day for 2 days then one at night x 2 days gabapentin 300 mg capsule 300 mg PO BID Qty: 5 0RF Rx Instructions: take one in pm 08/07 then twice a day 08/08 and 08/09 chlordiazepoxide HCl 10 mg capsule 10 mg PO BID Qty: 16 0RF Rx Instructions: take 2 on night of discharge then 2 pills twice a day for 2 days then 1 twice a day for 2 days then one at night x 2 days Discharge Orders: Discharge Order (Routine); Ordered 09/21/24 Ordered By: Abhijeet Ellington Admission Data Admit Date/Time: 09/20/24 13:50 Attending Provider: Abhijeet Ellington Admit Provider: Jensen Lee Primary Care Provider: Cedric Stout Other Providers: Jensen Lee Hospital Stay Data Consultations 09/19/24 03:36 ED Decision to Admit Stat Pending Results Patient Have Any Pending Studies at Discharge: No Discharge Instructions Given to Patient (Per Discharging Provider) Cessation of alcohol intake is highly recommended. Take chlordiazepoxide (Librium) in a tapering dose fashion as directed. A prescription has been sent to your [facility] pharmacy. Continue Protonix for stomach acid. Pepcid has been discontinued. Total Time Total Time Spent Total Time Spent (In Minutes): 50-minute Coding Level of Care Code 07167 INP/OBS DISCH >30 MIN Diagnoses Alcohol withdrawal F10.939 Alcoholic intoxication F10.929 Alcohol dependence F10.20 GERD (gastroesophageal reflux disease) K21.9 Depression with anxiety F41.8 Tobacco use Z72.0 Hypomagnesemia E83.42
[2024-09-21] MEDS ORDERED: GABAPENTIN 400 MG CAP PO SCH (18:45)
[2024-09-23] MEDS ORDERED: GABAPENTIN 400 MG CAP PO SCH (06:45)
== END 2024-09-21 12:49 | disposition home or self-care (01) | DRG 897 ==
LOC: SUATTDRO → ED 21:36 → 2N 21:36 → SUATTDRO 09-19 03:45 → 2N 09-19 05:08 → SUATTDRO 09-20 13:50